=== PATIENT | female | born 1980 | race Hispanic/Latino ===

== ENCOUNTER 2018-04-07 20:28 | Emergency (ER) | payer MEDICAID ==
[2018-04-07 21:07] LABS: Absolute Lymphocytes (CBC) 4.6 K/uL (0.7-4.9); Absolute Monocytes 0.7 K/uL (0.1-1.3); Absolute Neutrophil 5.3 K/uL (1.8-8.0); Basophils % 0.6 % (0-1.3); Eosinophils % 0.9 % (0-4.4); Hematocrit 38.4 % (36.0-45.0); Lymphocytes % 42.7 % (15.3-44.8); MCH 31.7 pg (27.0-35.0); MCV 91.7 fL (80-100); MPV 8.4 fL (7.6-11.3); Monocytes % 6.8 % (3.3-12.3); RBC Red Blood Cell Count 4.18 M/uL (3.86-4.86)
[2018-04-07 21:20] LABS: Protime INR 1.07
[2018-04-07 21:58] LABS: ALT/SGPT 13 U/L (12-78); AST/SGOT 7 U/L (15-37); Albumin 3.7 g/dL (3.4-5.0); Alkaline Phosphatase 67 U/L (45-117); BUN Blood Urea Nitrogen 15 mg/dL (7-18); Bicarbonate 27 mmol/L (21-32); Bilirubin Direct < 0.1 mg/dL (0-0.2); Bilirubin Total 0.2 mg/dL (0.2-1.0); Glucose Level 84 mg/dL (74-106); Potassium 3.6 mmol/L (3.5-5.1); Protein, Total 7.4 g/dL (6.4-8.2); Sodium Level 141 mmol/L (136-145)
[2018-04-07 22:01] LABS: Alcohol Serum/Plasma 4 mg/dL (<3)
--- NOTE | 2018-04-07 22:29 | ER ---
Nurse's Notes [facility] Name: Lucy Saldana Age: 38 yrs Sex: Female : 1980 Arrival Date: 04/07/2018 Time: 20:31 Bed 14 Private MD: Diagnosis: Alcohol abuse;Other chronic pain Presentation: 04/07 20:37 Presenting complaint: Patient states: Patient brought in by [employer] slurring speech aj c/o ulcers, requesting MRI of pelvis. Patient reports that she also is hearing voices that are telling her to cut her wrists. Transition of care: patient was not received from another setting of care. Onset of symptoms was April 07, 2018. Risk Assessment: Do you want to hurt yourself or someone else? Patient reports no desire to harm self or others. Initial Sepsis Screen: Does the patient meet any 2 criteria? No. Patient's initial sepsis screen is negative. Does the patient have a suspected source of infection? No. Patient's initial sepsis screen is negative. Care prior to arrival: None. 20:37 Method Of Arrival: Law Enforcement: [place] 20:37 Acuity: ERASMO 2 aj Triage Assessment: 20:42 General: Appears in no apparent distress. comfortable, Behavior is drowsy. Pain: aj Complains of pain in pelvis. Neuro: Level of Consciousness is awake, alert, obeys commands, Oriented to person, place, time, situation, Appropriate for age. Respiratory: Airway is patent Respiratory effort is even, unlabored, Respiratory pattern is regular, symmetrical. Derm: Skin is intact, is healthy with good turgor, Skin is pink, warm \T\ dry. normal. Musculoskeletal: Reports pain in pelvis. 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 - Social history:: Smoking status: Patient uses tobacco products, smokes one-half pack cigarettes per day. - Ebola Screening: : Patient negative for fever greater than or equal to 101.5 degrees Fahrenheit, and additional compatible Ebola Virus Disease symptoms Patient denies exposure to infectious person Patient denies travel to an Ebola-affected area in the 21 days before illness onset No symptoms or risks identified at this time. Screenin:56 Abuse screen: Denies threats or abuse. Nutritional screening: No deficits noted. tl2 Tuberculosis screening: No symptoms or risk factors identified. Fall Risk IV access (20 points). Assessment: 20:45 General: Appears in no apparent distress. comfortable, Behavior is agitated, anxious, ao inappropriate for age. Pain: Unable to use pain scale. FLACC scale score is 0 out of 10. Neuro: Level of Consciousness is awake, alert, Oriented to person, place, time, situation, Appropriate for age Moves all extremities. Full function Speech is normal, Facial symmetry appears normal, Pupils are PERRLA. Cardiovascular: Heart tones S1 S2 Capillary refill < 3 seconds Patient's skin is warm and dry. Respiratory: Airway is patent Respiratory effort is even, unlabored, Respiratory pattern is regular, symmetrical. GI: Abdomen is non-distended. : No signs and/or symptoms were reported regarding the genitourinary system. EENT: No signs and/or symptoms were reported regarding the EENT system. Derm: Skin is intact, Skin is pink, warm \T\ dry. normal, Skin temperature is warm. Musculoskeletal: Circulation, motion, and sensation intact. Range of motion: intact in all extremities. 21:00 Reassessment: Dr Michelle at bedside going over the CHIEF OF PEDIATRIC UROLOGY. Patient is being treated as ao intoxications will stay to get sober then DC. Sitter not needed at this time as stated by Dr Coulter. 22:28 Reassessment: Patient refused to urinate. Urine sample was cancel. ao Vital Signs: 20:42 BP 108 / 81; Pulse 100; Resp 19; Temp 98.7; Pulse Ox 98% on R/A; Weight 68.04 kg; aj Height 5 ft. 1 in. (154.94 cm); 22:29 BP 101 / 70; Pulse 73; Resp 16; Pulse Ox 97% on R/A; Pain 0/10; ao 22:34 BP 112 / 81; Pulse 71; Resp 18; Pulse Ox 100% on R/A; tl2 20:42 Body Mass Index 28.34 (68.04 kg, 154.94 cm) ED Course: 20:31 Patient arrived in ED. es 20:40 Triage completed. aj 20:42 Raul Rivera PA is PHCP. tiffany 20:42 Arm band placed on left wrist. Patient placed in an exam room, Patient [place] police at bedside. 20:43 Jose C Coulter MD is Attending Physician. jrMaria Esther 20:44 Michel Stafford, RN is Primary Nurse. ao 20:55 Inserted saline lock: 22 gauge in right forearm, using aseptic technique. Blood tl2 collected. 20:56 Patient has correct armband on for positive identification. Placed in gown. Bed in low tl2 position. Call light in reach. Side rails up X2. Security at bedside. 22:32 No provider procedures requiring assistance completed. IV discontinued, intact, ao bleeding controlled, No redness/swelling at site. Pressure dressing applied. Administered Medications: No medications were administered Outcome: 22:28 Discharge ordered by . tiffany 22:33 Discharged to Law Enforcement ao 22:33 Condition: stable 22:33 Discharge instructions given to patient, Instructed on discharge instructions, follow up and referral plans. Demonstrated understanding of instructions, follow-up care, medications. 22:34 Patient left the ED. ao Signatures: Kerry Banuelos, RN Noy Isaac Josh, PA PA jrMichel Pedroza RN RN ao Knox, Taylor, RN RN tl2 Thompson, Moriah mt Corrections: (The following items were deleted from the chart) 21:01 20:45 Safety checks: Items removed: yes. Door open/sign placed on door: yes. mt Family/friend present: no. Other: Two [place] police officers standing bedside. Sitter present: Yes. Other: ELIZABETH Love sitting one on one. mt
--- NOTE | 2018-04-07 22:29 | EDPHYS ---
Physician Documentation [facility] Name: Lcuy Saldana Age: 38 yrs Sex: Female : 1980 Arrival Date: 04/07/2018 Time: 20:31 Bed 14 Private MD: ED Physician Jose C Coulter HPI: 04/07 21:43 This 38 yrs old Female presents to ER via Law Enforcement with complaints of jr8 slurred speech. 21:43 Patient brought in by police after picking her up on warrants. Stated that she was jr8 slurring her speech. Wants her medically cleared for alf. Patient complains of constant nausea and vomiting from ulcers. Patient alert to person, place, time, event but is slurring speech . Onset: The symptoms/episode began/occurred at an unknown time. Severity of symptoms: At their worst the symptoms were mild in the emergency department the symptoms are unchanged. It is unknown whether or not the patient has had similar symptoms in the past. The patient has not recently seen a physician. 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 - Social history:: Smoking status: Patient uses tobacco products, smokes one-half pack cigarettes per day. - Ebola Screening: : Patient negative for fever greater than or equal to 101.5 degrees Fahrenheit, and additional compatible Ebola Virus Disease symptoms Patient denies exposure to infectious person Patient denies travel to an Ebola-affected area in the 21 days before illness onset No symptoms or risks identified at this time. ROS: 21:43 Eyes: Negative for injury, pain, redness, and discharge, ENT: Negative for injury, jr8 pain, and discharge, Neck: Negative for injury, pain, and swelling, Cardiovascular: Negative for chest pain, palpitations, and edema, Respiratory: Negative for shortness of breath, cough, wheezing, and pleuritic chest pain, Back: Negative for injury and pain, MS/Extremity: Negative for injury and deformity, Skin: Negative for injury, rash, and discoloration, Neuro: Negative for headache, weakness, numbness, tingling, and seizure. 21:43 Abdomen/GI: Positive for nausea and vomiting, Negative for abdominal pain, diarrhea, constipation, abdominal cramps, abdominal distension, anorexia, dysphagia, hematemesis, black/tarry stool, rectal pain, rectal bleeding, bowel incontinence, flatulence. Exam: 21:43 Eyes: Pupils equal round and reactive to light, extra-ocular motions intact. Lids and jr8 lashes normal. Conjunctiva and sclera are non-icteric and not injected. Cornea within normal limits. Periorbital areas with no swelling, redness, or edema. ENT: Nares patent. No nasal discharge, no septal abnormalities noted. Tympanic membranes are normal and external auditory canals are clear. Oropharynx with no redness, swelling, or masses, exudates, or evidence of obstruction, uvula midline. Mucous membranes moist. Neck: Trachea midline, no thyromegaly or masses palpated, and no cervical lymphadenopathy. Supple, full range of motion without nuchal rigidity, or vertebral point tenderness. No Meningismus. Cardiovascular: Regular rate and rhythm with a normal S1 and S2. No gallops, murmurs, or rubs. Normal PMI, no JVD. No pulse deficits. Respiratory: Lungs have equal breath sounds bilaterally, clear to auscultation and percussion. No rales, rhonchi or wheezes noted. No increased work of breathing, no retractions or nasal flaring. Abdomen/GI: Soft, non-tender, with normal bowel sounds. No distension or tympany. No guarding or rebound. No evidence of tenderness throughout. Back: No spinal tenderness. No costovertebral tenderness. Full range of motion. Skin: Warm, dry with normal turgor. Normal color with no rashes, no lesions, and no evidence of cellulitis. MS/ Extremity: Pulses equal, no cyanosis. Neurovascular intact. Full, normal range of motion. Neuro: Awake and alert, GCS 15, oriented to person, place, time, and situation. Cranial nerves II-XII grossly intact. Motor strength 5/5 in all extremities. Sensory grossly intact. Cerebellar exam normal. Normal gait. Vital Signs: 20:42 BP 108 / 81; Pulse 100; Resp 19; Temp 98.7; Pulse Ox 98% on R/A; Weight 68.04 kg; aj Height 5 ft. 1 in. (154.94 cm); 22:29 BP 101 / 70; Pulse 73; Resp 16; Pulse Ox 97% on R/A; Pain 0/10; ao 22:34 BP 112 / 81; Pulse 71; Resp 18; Pulse Ox 100% on R/A; tl2 20:42 Body Mass Index 28.34 (68.04 kg, 154.94 cm) aj MDM: 20:43 Patient medically screened. 8 22:27 Data reviewed: vital signs, nurses notes, lab test result(s), EKG, and as a result, I jr8 will discharge patient. Data interpreted: Pulse oximetry: on room air is 98 %. Interpretation: normal. Counseling: I had a detailed discussion with the patient and/or guardian regarding: the historical points, exam findings, and any diagnostic results supporting the discharge/admit diagnosis, lab results, the need for outpatient follow up, a family practitioner, to return to the emergency department if symptoms worsen or persist or if there are any questions or concerns that arise at home. ED course: No acute medical condition found. Labs without acute finding. Medically cleared for alf . 04/07 20:43 Order name: Acetaminophen; Complete Time: 22:04/07 20:43 Order name: Basic Metabolic Panel; Complete Time: 22:04/07 20:43 Order name: CBC with Diff; Complete Time: 21:42 04/07 20:43 Order name: ETOH Level; Complete Time: 22:04/07 20:43 Order name: Hepatic Function; Complete Time: 22:05 04/07 20:43 Order name: PT-INR; Complete Time: 21:42 04/07 20:43 Order name: Salicylate; Complete Time: 22:27 04/07 20:43 Order name: EKG; Complete Time: 20:44 04/07 20:43 Order name: EKG - Nurse/Tech; Complete Time: 20:53 04/07 20:43 Order name: IV Saline Lock; Complete Time: 20:53 04/07 20:43 Order name: Labs collected and sent; Complete Time: 20:53 jr8 Administered Medications: No medications were administered Disposition: 04/07/18 22:28 Discharged to Home. Impression: Alcohol abuse, Other chronic pain. - Condition is Stable. - Discharge Instructions: Alcohol Intoxication, Chronic Pain. - Medication Reconciliation Form, Thank You Letter, Antibiotic Education, Prescription Opioid Use form. - Follow up: Private Physician; When: As needed; Reason: Recheck today's complaints, Continuance of care, Re-evaluation by your physician. - Problem is new. - Symptoms are unchanged. Addendum: 04/09/2018 04:20 Co-signature as Attending Physician, Jose C Coulter MD I agree with the assessment and p s1 plan of care. Signatures: Dispatcher [employer] EDKerry Saleh RN Raul Adams PA PA jr8 Michel Stafford RN RN ao Singer, Phillip, MD MD ps1 Corrections: (The following items were deleted from the chart) 04/07 22:28 22:28 04/07/2018 22:28 Discharged to Home. Impression: Alcohol abuse. Condition is jr8 Stable. Forms are Medication Reconciliation Form, Thank You Letter, Antibiotic Education, Prescription Opioid Use. Follow up: Private Physician; When: As needed; Reason: Recheck today's complaints, Continuance of care, Re-evaluation by your physician. Problem is new. Symptoms are unchanged. jr8 22:33 20:43 Urine Test ordered. jr8 ao 22:34 20:43 Urine Dipstick-Ancillary ordered. jr8 ao 22:34 22:28 04/07/2018 22:28 Discharged to Home. Impression: Alcohol abuse; Other chronic ao pain. Condition is Stable. Forms are Medication Reconciliation Form, Thank You Letter, Antibiotic Education, Prescription Opioid Use. Follow up: Private Physician; When: As needed; Reason: Recheck today's complaints, Continuance of care, Re-evaluation by your physician. Problem is new. Symptoms are unchanged. jr8
--- NOTE | 2018-04-08 14:37 | EKG ---
Test Date: 2018-04-07 Test Time: 20:48:52 [employer]er: LAUREL MEASUREMENT RESULTS: Intervals: Rate: 87 VA: 162 QRSD: 70 QT: 370 QTc: 445 [place]: P: 41 VA: 162 QRS: 71 T: 59 INTERPRETIVE STATEMENTS: Normal sinus rhythm Normal ECG Compared to ECG 06/02/2013 09:05:32 No significant changes Electronically Signed On 04-08-18 14:35:46 CDT by Liam Guaman
== END 2018-04-07 22:34 | disposition home or self-care (01) ==
LOC: ER 20:28
DX: F10.10 Alcohol abuse, uncomplicated (principal); F20.9 Schizophrenia, unspecified; G89.29 Other chronic pain; F17.210 Nicotine dependence, cigarettes, uncomplicated
CPT/HCPCS: 36415; 80048; 80076; 80320; 80329; 85025; 85610; 93005; 99284

== ENCOUNTER 2018-05-12 17:13 | Emergency (ER) | payer MEDICAID ==
[2018-05-12] MEDS ORDERED: NA CHLORIDE 0.9% 1,000 ML ONE (17:30)
[2018-05-12 17:43] LABS: Absolute Lymphocytes (CBC) 2.9 K/uL (0.7-4.9); Absolute Monocytes 0.7 K/uL (0.1-1.3); Absolute Neutrophil 7.8 K/uL (1.8-8.0); Basophils % 0.3 % (0-1.3); Eosinophils % 0.9 % (0-4.4); Hematocrit 37.2 % (36.0-45.0); Lymphocytes % 25.2 % (15.3-44.8); MCV 90.7 fL (80-100); MPV 8.7 fL (7.6-11.3); Monocytes % 5.7 % (3.3-12.3)
--- NOTE | 2018-05-12 17:44 | RAD REPORT ---
EXAM DESCRIPTION: CT - Head Brain Wo Cont - 05/12/2018 5:34 pm CLINICAL HISTORY: Seizure, transient alteration of awareness COMPARISON: CT head May 2013 TECHNIQUE: Axial 5 mm thick images of the head were obtained without IV contrast. All CT scans are performed using dose optimization technique as appropriate and may include automated exposure control or mA/KV adjustment according to patient size. FINDINGS: No intracranial hemorrhage, mass, edema or shift of mid-line structures. No acute infarcti on changes seen. No abnormal extra-axial fluid collections. Ventricles are normal. Prominent fatty ti ssue over the left frontal scalp noted as an incidental finding. Mastoid air cells and visualized portions of the paranasal sinuses are clear. No acute bony findings. No significant change from comparison. IMPRESSION: Negative non-contrast CT head examination for acute or significant finding.
[2018-05-12 17:47] LABS: Protime INR 1.01
[2018-05-12 17:52] LABS: Barbiturates NEGATIVE (NEGATIVE); Benzodiazepines POSITIVE (NEGATIVE); Cocaine POSITIVE (NEGATIVE); METHAMPHETAM NEGATIVE (NEGATIVE); Methadone NEGATIVE (NEGATIVE); Opiates POSITIVE (NEGATIVE); Phencyclidine NEGATIVE (NEGATIVE); THC Cannibis POSITIVE (NEGATIVE)
[2018-05-12 18:05] LABS: ALT/SGPT 28 U/L (12-78); AST/SGOT 30 U/L (15-37); Albumin 3.4 g/dL (3.4-5.0); Alkaline Phosphatase 60 U/L (45-117); BUN Blood Urea Nitrogen 9 mg/dL (7-18); Bicarbonate 25 mmol/L (21-32); Bilirubin Direct < 0.1 mg/dL (0-0.2); Bilirubin Total 0.3 mg/dL (0.2-1.0); Glucose Level 99 mg/dL (74-106); Potassium 3.8 mmol/L (3.5-5.1); Sodium Level 143 mmol/L (136-145)
[2018-05-12 18:12] LABS: Valproic Acid (Depakene) Level < 3.0 ug/mL (50-100)
[2018-05-12 18:23] LABS: Urine Blood 2+ (NEG); Urine Glucose NEGATIVE (NEG); Urine Protein NEGATIVE (NEG); Urine Specific Gravity 1.025 (1.005-1.030); Urine pH 5.5 (5.0-7.0)
--- NOTE | 2018-05-12 19:30 | ER ---
Nurse's Notes [facility] Name: Lucy Saldana Age: 38 yrs Sex: Female : 1980 Arrival Date: 05/12/2018 Time: 17:16 Bed 2 Private MD: Diagnosis: Drug abuse counseling and surveillance;Drug Abuse Presentation: 05/12 17:16 Presenting complaint: Was seen walking near road, stumbling around, picked up by ph someone passing by who attempted to take her home but pt could not give address, pt reports hx of seizures, hematoma noted to head, pt also noted to be drowsy w/ slurred speech, denies drug or alcohol use. Transition of care: patient was not received from another setting of care. Onset of symptoms was May 12, 2018. Risk Assessment: Do you want to hurt yourself or someone else? Patient reports no desire to harm self or others. Initial Sepsis Screen: Does the patient meet any 2 criteria? No. Patient's initial sepsis screen is negative. Care prior to arrival: None. 17:16 Method Of Arrival: Wheelchair ph 17:16 Acuity: ERASMO 2 17:36 Initial Sepsis Screen: Does the patient have a suspected source of infection? No. sv Patient's initial sepsis screen is negative. Triage Assessment: 17:15 General: Appears uncomfortable, unkempt, Behavior is cooperative, drowsy. Pain: Denies sv pain. EENT: No signs and/or symptoms were reported regarding the EENT system. Neuro: Level of Consciousness is lethargic, Oriented to person, situation, Moves all extremities. Speech is slurred, Reports she had a seizure.. Cardiovascular: Patient's skin is warm and dry. Rhythm is sinus rhythm. Respiratory: Airway is patent Respiratory effort is even, unlabored, Respiratory pattern is regular, symmetrical. GI: No signs and/or symptoms were reported involving the gastrointestinal system. : No signs and/or symptoms were reported regarding the genitourinary system. Derm: Skin is normal. Musculoskeletal: No signs and/or symptoms reported regarding the musculoskeletal system. 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 - Social history:: Smoking status: unknown. - Ebola Screening: : No symptoms or risks identified at this time. Screenin:28 Abuse screen: Denies threats or abuse. Denies injuries from another. Nutritional sv screening: No deficits noted. Tuberculosis screening: No symptoms or risk factors identified. Fall Risk No fall in past 12 months (0 pts). Secondary diagnosis (15 points) seizures, IV access (20 points). Ambulatory Aid- None/Bed Rest/Nurse Assist (0 pts). Gait- Normal/Bed Rest/Wheelchair (0 pts) Mental Status- Overestimates/Forgets Limitations (15 pts.). Total Graves Fall Scale indicates High Risk Score (45 or more points). Fall prevention measures have been instituted. Side Rails Up X 2 Placed Close to Nursing Station Frequent Obs/Assessments Occuring As available patient and family educated on Fall Prevention Program and Strategies. Assessment: 17:36 Reassessment: Patient appears in no apparent distress at this time. No changes from sv previously documented assessment. Patient and/or family updated on plan of care and expected duration. Pain level reassessed. 18:26 Reassessment: Patient appears in no apparent distress at this time. No changes from ss previously documented assessment. Patient and/or family updated on plan of care and expected duration. Pain level reassessed. 19:00 Reassessment: RECD REPORT FROM SAADIA HAMPTON. 38YO HF P/W INGESTION AND AMS. AWAITING bp TRANSPORT OR SOBRIETY FOR DISPOSITION. 19:32 Reassessment: FAMILY AT B/S, PT D/C AMBULATORY WITH FAMILY, DX WITH DRUG ABUSE. bp Vital Signs: 17:17 BP 102 / 76; Pulse 89; Resp 14; Pulse Ox 93% on R/A; ss 17:28 Temp 98.8; ss 17:39 BP 96 / 67; Pulse 80; Resp 12; Pulse Ox 98% on 2 lpm NC; sv 18:26 BP 101 / 69; Pulse 66; Resp 15; Pulse Ox 100% on R/A; ss 19:00 BP 101 / 70; Pulse 82; Resp 16; Pulse Ox 100% ; bp ED Course: 17:15 Initial lab(s) drawn, by ED staff, sent to lab. Inserted saline lock: 20 gauge in right sv antecubital area, using aseptic technique. ,using aseptic technique. done by Sarah HAMPTON Blood collected. 17:16 Patient arrived in ED. ss 17:18 Raul Rivera PA is PHCP. jr8 17:18 Parveen Stanley MD is Attending Physician. jr8 17:20 Triage completed. ph 17:20 Saadia Croft, RN is Primary Nurse. sv 17:20 Arm band placed on. ph 17:20 Patient has correct armband on for positive identification. Placed in gown. Bed in low sv position. Call light in reach. Side rails up X2. detective chief on. Pulse ox on. NIBP on. Door closed. Head of bed elevated. 17:22 Straight cath inserted, using sterile technique, 16 Fr. Specimen obtained. Patient sv tolerated well. 17:[address] via stretcher. sv 17:34 CT Head Brain wo Cont In Process Unspecified. EDMS 17:34 EKG done, by filling technician. reviewed by Raul GARCIA. sm3 17:36 Patient moved back from CT. sv 17:37 CT completed. Patient tolerated procedure well. nj 19:02 Primary Nurse role handed off by Saadia Croft, BERTA sv 19:05 Parish Escalera, BERTA is Primary Nurse. bp 19:32 No provider procedures requiring assistance completed. IV discontinued, intact, bp bleeding controlled, No redness/swelling at site. Pressure dressing applied. Administered Medications: 17:27 Drug: NS 0.9% 1000 ml Route: IV; Rate: 1000 ml; Site: right antecubital; ss 18:30 Follow up: Response: No adverse reaction; IV Status: Completed infusion; IV Intake: sv 1000ml Point of Care Testing: Blood Glucose: 17:17 Blood Glucose: 82 mg/dL; ss Ranges: Intake: 18:30 IV: 1000ml; Total: 1000ml. sv Outcome: 19:29 Discharge ordered by . jr8 19:33 Discharged to home ambulatory, with family. bp 19:33 Condition: stable 19:33 Discharge instructions given to patient, Instructed on discharge instructions, Demonstrated understanding of instructions, follow-up care. 19:34 Patient left the ED. bp Signatures: Dispatcher [employer] EDSaadia Iqbal RN Gina Fraser RN RN ss Roszak, Josh, PA PA jr Sakina Fragoso RN RN [facility], Parish Escamilla RN RN Chanelle Rawls [facility]
--- NOTE | 2018-05-12 19:30 | EDPHYS ---
Physician Documentation [facility] Name: Lucy Saldana Age: 38 yrs Sex: Female : 1980 Arrival Date: 05/12/2018 Time: 17:16 Bed 2 Private MD: ED Physician Parveen Stanley HPI: 05/12 18:56 This 38 yrs old Female presents to ER via Wheelchair with complaints of jr8 Altered Mental Status. 18:56 The patient presents with confusion, decreased mental status. Onset: The jr8 symptoms/episode began/occurred at an unknown time. Possible causes: drug use, seizure, the patient has a known seizure history. Associated signs and symptoms: The patient has no apparent associated signs or symptoms. Current symptoms: In the emergency department the patient's symptoms have improved. Patient's baseline: Neuro: alert and fully oriented, Motor: no deficits, Ambulation: walks without assistance, Speech: normal. It is unknown whether or not the patient has had similar symptoms in the past. It is unknown whether or not the patient has recently seen a physician. Patient brought in POV by bystander who found her staggering down the road. Stated that she did not know where she was going. Patient alert to person and place. Could tell us her home address but not what she was doing . INTERIOR MECHANIC: 19:33 LMP N/A - Irregular menses bp Historical: - Allergies: 17:20 No Known Allergies; ph - Home Meds: 17:20 Celexa Oral [Active]; Depakote Oral [Active]; hydrocodone-acetaminophen 10-325 mg Oral ph tab 1 tab every 6 hours [Active]; Risperdal Oral [Active]; Soma 350 mg Oral tab 1 tab 3 times per day [Active]; - PMHx: 17:20 Chronic pain; Schizophrenia; ph - PSHx: 17:20 None; ph - Immunization history:: Adult Immunizations unknown. - Social history:: Smoking status: unknown. - Ebola Screening: : No symptoms or risks identified at this time. ROS: 18:56 Eyes: Negative for injury, pain, redness, and discharge, ENT: Negative for injury, jr8 pain, and discharge, Neck: Negative for injury, pain, and swelling, Cardiovascular: Negative for chest pain, palpitations, and edema, Respiratory: Negative for shortness of breath, cough, wheezing, and pleuritic chest pain, Abdomen/GI: Negative for abdominal pain, nausea, vomiting, diarrhea, and constipation, Back: Negative for injury and pain, MS/Extremity: Negative for injury and deformity, Skin: Negative for injury, rash, and discoloration. 18:56 Neuro: Positive for altered mental status, Negative for dizziness, gait disturbance, headache, hearing loss, loss of consciousness, numbness, seizure activity, speech changes, syncope, near syncope, tingling, tinnitus, tremor, visual changes, weakness. Exam: 18:56 Eyes: Pupils equal round and reactive to light, extra-ocular motions intact. Lids and jr8 lashes normal. Conjunctiva and sclera are non-icteric and not injected. Cornea within normal limits. Periorbital areas with no swelling, redness, or edema. ENT: Nares patent. No nasal discharge, no septal abnormalities noted. Tympanic membranes are normal and external auditory canals are clear. Oropharynx with no redness, swelling, or masses, exudates, or evidence of obstruction, uvula midline. Mucous membranes moist. Neck: Trachea midline, no thyromegaly or masses palpated, and no cervical lymphadenopathy. Supple, full range of motion without nuchal rigidity, or vertebral point tenderness. No Meningismus. Cardiovascular: Regular rate and rhythm with a normal S1 and S2. No gallops, murmurs, or rubs. Normal PMI, no JVD. No pulse deficits. Respiratory: Lungs have equal breath sounds bilaterally, clear to auscultation and percussion. No rales, rhonchi or wheezes noted. No increased work of breathing, no retractions or nasal flaring. Abdomen/GI: Soft, non-tender, with normal bowel sounds. No distension or tympany. No guarding or rebound. No evidence of tenderness throughout. Back: No spinal tenderness. No costovertebral tenderness. Full range of motion. Skin: Warm, dry with normal turgor. Normal color with no rashes, no lesions, and no evidence of cellulitis. MS/ Extremity: Pulses equal, no cyanosis. Neurovascular intact. Full, normal range of motion. 18:56 Neuro: Orientation: to person, place, Mentation: slow to respond, Memory: immediate memory is intact, remote memory is intact. recent memory is impaired, Cranial nerves: CN I not tested, CN II- XII are normal as tested, extraocular movements are intact, Facial palsy and sensory deficits are absent. Speech is slowed, slurred, Tongue strength is normal, Motor: moves all fours, Sensation: no obvious gross deficits, seizure activity, is not displayed by the patient, Abnormal movements: there are no abnormal movements. Vital Signs: 17:17 BP 102 / 76; Pulse 89; Resp 14; Pulse Ox 93% on R/A; ss 17:28 Temp 98.8; ss 17:39 BP 96 / 67; Pulse 80; Resp 12; Pulse Ox 98% on 2 lpm NC; sv 18:26 BP 101 / 69; Pulse 66; Resp 15; Pulse Ox 100% on R/A; ss 19:00 BP 101 / 70; Pulse 82; Resp 16; Pulse Ox 100% ; bp MDM: 17:18 Patient medically screened. jr8 19:26 Data reviewed: vital signs, nurses notes, lab test result(s), EKG. Data interpreted: jr8 Pulse oximetry: on room air is 100 %. Interpretation: normal. Counseling: I had a detailed discussion with the patient and/or guardian regarding: the historical points, exam findings, and any diagnostic results supporting the discharge/admit diagnosis, lab results, the need for outpatient follow up, a family practitioner, to return to the emergency department if symptoms worsen or persist or if there are any questions or concerns that arise at home. ED course: Patient has improved. Wants to go home. Patient found a ride from relative to pick her up and is present in exam room. Discussed with her that she needs to not do illegal drugs anymore. If worse to come back . 05/12 17:20 Order name: Acetaminophen; Complete Time: 18:37 05/12 17:20 Order name: Basic Metabolic Panel; Complete Time: 18:37 05/12 17:20 Order name: CBC with Diff; Complete Time: 18:00 05/12 17:20 Order name: ETOH Level; Complete Time: 18:37 05/12 17:20 Order name: Hepatic Function; Complete Time: 18:37 05/12 17:20 Order name: PT-INR; Complete Time: 18:37 05/12 17:20 Order name: Ptt, Activated; Complete Time: 18:37 05/12 17:20 Order name: Salicylate; Complete Time: 18:37 05/12 17:20 Order name: Urine Drug Screen; Complete Time: 18:37 05/12 17:20 Order name: CT Head Brain wo Cont; Complete Time: 18:00 05/12 17:20 Order name: Depakote; Complete Time: 18:37 05/12 17:34 Order name: Urine Dipstick--Ancillary (enter results); Complete Time: 18:37 05/12 17:34 Order name: Urine --Ancillary (enter results); Complete Time: 18:37 eb 05/12 19:01 Order name: Glucose, Ancillary Testing; Complete Time: 19:11 EDMO 05/12 17:20 Order name: Urine Test (obtain specimen); Complete Time: 17:27 05/12 17:20 Order name: EKG; Complete Time: 17:21 05/12 17:20 Order name: EKG - Nurse/Tech; Complete Time: 17:27 05/12 17:20 Order name: IV Saline Lock; Complete Time: 17:27 05/12 17:20 Order name: Labs collected and sent; Complete Time: 17:27 05/12 17:20 Order name: Urine Dipstick-Ancillary (obtain specimen); Complete Time: 17:27 Administered Medications: 17:27 Drug: NS 0.9% 1000 ml Route: IV; Rate: 1000 ml; Site: right antecubital; ss 18:30 Follow up: Response: No adverse reaction; IV Status: Completed infusion; IV Intake: sv 1000ml Point of Care Testing: Blood Glucose: 17:17 Blood Glucose: 82 mg/dL; ss Ranges: Critical Glucose Levels:Adult <50 mg/dl or >400 mg/dl <40 mg/dl or >180 mg/dl Disposition: 05/13 07:34 Co-signature as Attending Physician, Parveen Stanley MD I agree with the assessment and chris plan of care. Disposition: 05/12/18 19:29 Discharged to Home. Impression: Drug abuse counseling and surveillance, Drug Abuse. - Condition is Stable. - Discharge Instructions: Finding Treatment for Addiction. - Medication Reconciliation Form, Thank You Letter, Antibiotic Education, Prescription Opioid Use form. - Follow up: Private Physician; When: 2 - 3 days; Reason: Recheck today's complaints, Continuance of care, Re-evaluation by your physician. - Problem is new. - Symptoms have improved. Signatures: Dispatcher [employer] Saadia Rodriges, RN RN Parveen Chew MD MD cha Smirch, Shelby, RN RN ss Roszak, Josh, PA PA jr8 Sakina Fragoso RN RN Parish Escalera RN RN bp Corrections: (The following items were deleted from the chart) 05/12 19:34 19:29 05/12/2018 19:29 Discharged to Home. Impression: Drug abuse counseling and bp surveillance; Drug Abuse. Condition is Stable. Forms are Medication Reconciliation Form, Thank You Letter, Antibiotic Education, Prescription Opioid Use. Follow up: Private Physician; When: 2 - 3 days; Reason: Recheck today's complaints, Continuance of care, Re-evaluation by your physician. Problem is new. Symptoms have improved. jr8
--- NOTE | 2018-05-13 04:17 | EKG ---
Test Date: 2018-05-12 Test Time: 17:27:47 [employer] Tool Setter: ANNIE MEASUREMENT RESULTS: Intervals: Rate: 87 TN: 154 QRSD: 74 QT: 360 QTc: 433 [place]: P: 29 TN: 154 QRS: 39 T: 32 INTERPRETIVE STATEMENTS: Normal sinus rhythm Possible Left atrial enlargement Borderline ECG Compared to ECG 04/07/2018 20:48:52 No significant changes Electronically Signed On 05-13-18 04:16:33 CDT by Juan Antonio Abdalla
== END 2018-05-12 19:34 | disposition home or self-care (01) ==
LOC: ER 17:13
DX: F19.10 Other psychoactive substance abuse, uncomplicated (principal); F20.9 Schizophrenia, unspecified; Z71.51 Drug abuse counseling and surveillance of drug abuser
CPT/HCPCS: 36415; 51702; 70450; 80048; 80076; 80164; 80307; 80320; 80329; 81003; 81025; 82962; 85025; 85610; 85730; 93005; 96360; 99285; J7030

== ENCOUNTER 2019-01-01 21:20 | Emergency (ER) | payer MEDICAID ==
[2019-01-01 21:47] LABS: Absolute Lymphocytes (CBC) 5.4 K/uL (0.7-4.9); Absolute Monocytes 0.6 K/uL (0.1-1.3); Absolute Neutrophil 3.4 K/uL (1.8-8.0); Basophils % 0.4 % (0-1.3); Eosinophils % 1.5 % (0-4.4); Hematocrit 38.4 % (36.0-45.0); Lymphocytes % 56.7 % (15.3-44.8); MPV 8.4 fL (7.6-11.3); RBC Red Blood Cell Count 4.23 M/uL (3.86-4.86)
[2019-01-01] MEDS ORDERED: NA CHLORIDE 0.9% 1,000 ML ONE (22:01)
[2019-01-01 22:06] LABS: ALT/SGPT 15 U/L (12-78); AST/SGOT 7 U/L (15-37); Albumin 3.6 g/dL (3.4-5.0); Alkaline Phosphatase 69 U/L (45-117); BUN Blood Urea Nitrogen 13 mg/dL (7-18); Bicarbonate 28 mmol/L (21-32); Bilirubin Direct < 0.1 mg/dL (0-0.2); Glucose Level 83 mg/dL (74-106); Potassium 3.7 mmol/L (3.5-5.1); Protein, Total 7.3 g/dL (6.4-8.2); Sodium Level 147 mmol/L (136-145)
[2019-01-01 22:15] LABS: Protime INR 0.93
[2019-01-01 22:38] LABS: Bilirubin Total < 0.1 mg/dL (0.2-1.0)
[2019-01-01 23:20] LABS: Creatine Phosphokinase 113 U/L (26-192); Troponin I < 0.02 ng/mL (0.0-0.045)
[2019-01-01 23:47] LABS: Barbiturates NEGATIVE (NEGATIVE); Benzodiazepines NEGATIVE (NEGATIVE); Cocaine NEGATIVE (NEGATIVE); METHAMPHETAM NEGATIVE (NEGATIVE); Methadone NEGATIVE (NEGATIVE); Opiates POSITIVE (NEGATIVE); Phencyclidine NEGATIVE (NEGATIVE); THC Cannibis POSITIVE (NEGATIVE)
--- NOTE | 2019-01-02 00:08 | ER ---
Nurse's Notes [facility] Name: Lucy Saldana Age: 38 yrs Sex: Female : 1980 Arrival Date: 01/01/2019 Time: 21:22 Bed 3 Private MD: Diagnosis: Drug abuse counseling and surveillance of drug abuser Presentation: 01/01 21:23 Presenting complaint: Patient states: Patient was found unresponsive on a side walk. ao Pupils were pinpoint and not responding. Ammonia inhaler was given with no response. Patient was given Narcan 2 mg IM on scene with a response. Patient reported taking two hydrocodone and was found with pill identified as Hydrocodone. Transition of care: patient was not received from another setting of care. Onset of symptoms is unknown. Risk Assessment: Do you want to hurt yourself or someone else? Patient reports no desire to harm self or others. Initial Sepsis Screen: Does the patient meet any 2 criteria? No. Patient's initial sepsis screen is negative. Does the patient have a suspected source of infection? No. Patient's initial sepsis screen is negative. Care prior to arrival: Medication(s) given: Narcan 2 mg IM. 21:23 Method Of Arrival: EMS: [facility] ao 21:23 Acuity: ERASMO 2 ao CLINICAL INFORMATICS PHYSICIAN: 23:46 pt currently on cycle ak1 Historical: - Allergies: 21:33 No Known Allergies; ao - Home Meds: 21:33 Celexa Oral [Active]; Depakote Oral [Active]; hydrocodone-acetaminophen 10-325 mg Oral ao tab 1 tab every 6 hours [Active]; Soma 350 mg Oral tab 1 tab 3 times per day [Active]; Risperdal Oral [Active]; - PMHx: 21:33 Chronic pain; Schizophrenia; Bipolar disorder; Hypertension; ao - PSHx: 21:33 Unable to obtain; ao - Immunization history:: Adult Immunizations unknown. - Social history:: Smoking status: unknown. - Ebola Screening: : Patient denies travel to an Ebola-affected area in the 21 days before illness onset. Screenin:40 Abuse screen: Denies threats or abuse. Denies injuries from another. Nutritional ao screening: No deficits noted. Tuberculosis screening: No symptoms or risk factors identified. Fall Risk Fall in past 12 months (25 points). Secondary diagnosis (15 points) IV access (20 points). Assessment: 21:30 General: Appears in no apparent distress. uncomfortable, unkempt, Behavior is drowsy, ao flat, inappropriate for age, listless, uncooperative. Pain: Denies pain. Neuro: Level of Consciousness is awake, confused, Oriented to person, place, Moves all extremities. Speech is normal. Cardiovascular: Capillary refill < 3 seconds Patient's skin is warm and dry. Respiratory: Airway is patent Trachea midline Respiratory effort is even, unlabored, Respiratory pattern is regular, symmetrical. GI: Abdomen is flat, non-distended. : No signs and/or symptoms were reported regarding the genitourinary system. EENT: No signs and/or symptoms were reported regarding the EENT system. Derm: Skin is intact, Skin is pink, warm \\T\\ dry. black, Skin temperature is warm. Musculoskeletal: Circulation, motion, and sensation intact. Range of motion:. 21:57 Reassessment: EMS handed over to this nurse pill allegedly reported patient had. Pills ao had not been in a pill bottle and pt had no prescription with her. Pills had been identified as 7-Baylis 10/325 Mg and 6-Soma 350 mg with BERTA Jensen. 22:09 Reassessment: Hand over pills to BERTA Navarro. ao 23:36 Reassessment: pt unsteady on her feet while trying to use bedside commode. pt crying ak1 but will not say why she is upset. Mabel GARCIA at bedside. pt stating she wants to go home, pt denies having friends or family to come get her or to stay with. 23:46 Reassessment: pt denies any self harm. pt denies suicidal attempt. pt stated she only ak1 "took my meds". 01/02 00:03 Reassessment: pt unable to find a ride home. attempt to contact mother via numbers on ak1 the pt's emergency contact sheet on file with no success. pt stumbling around ER, left out the front doors. [place] [employer] contacted and on scene. pt eloped. 03:09 Reassessment: Watch BERTA Navarro disposal in biohazard bin patient pills prior ao identified as Baylis and Soma. 03:12 Reassessment: Per hour supervisor intermediates pill need to be dispose. ao Vital Signs: 01/01 21:29 BP 112 / 83; Pulse 99; Resp 15; Temp 98.5(O); Pulse Ox 100% on R/A; Weight 77.11 kg; ao Height 5 ft. 3 in. (160.02 cm); Pain 5/10; 21:29 Body Mass Index 30.11 (77.11 kg, 160.02 cm) ao ED Course: 21:22 Patient arrived in ED. ao 21:28 Triage completed. ao 21:35 Arm band placed on right wrist. Patient placed in an exam room, on a stretcher, on ao environmental monitoring technician, on pulse oximetry, Patient notified of wait time. 21:36 Parveen Kirk PA is PHCP. cp 21:36 Parveen Stanley MD is Attending Physician. cp 21:36 Inserted saline lock: 20 gauge in right forearm, using aseptic technique. ,using ao aseptic technique. BERTA Jensen Blood collected. 21:40 Patient has correct armband on for positive identification. environmental monitoring technician on. Pulse ao ox on. NIBP on. 21:41 Michel Stafford, BERTA is Primary Nurse. ao 23:31 CT Head C Spine In Process Unspecified. EDMS 23:46 No provider procedures requiring assistance completed. ak1 01/02 00:05 IV discontinued, intact, bleeding controlled, No redness/swelling at site. Pressure ao dressing applied. Administered Medications: 01/01 21:52 Drug: NS 0.9% 1000 ml Route: IV; Rate: 1 bolus; Site: right antecubital; ao 23:03 Follow up: IV Status: Completed infusion; IV Intake: 1000ml ak1 Point of Care Testing: Blood Glucose: :29 Blood Glucose: 100 mg/dL; ao Ranges: Intake: 23:03 IV: 1000ml; Total: 1000ml. ak1 Outcome: 01/02 00:05 Eloped from patient exam room, after seeing physician See nursing notes ao Condition: stable Instructed on To call for a ride. Pt elope 00:07 Discharge ordered by . cp 00:08 Patient left the ED. ao Signatures: Dispatcher [employer] EDMS Camila Jauregui RN RN ak1 Parveen Kirk PA PA cp Ortiz, Alex RN RN ao Corrections: (The following items were deleted from the chart) 01/01 21:36 21:23 Care prior to arrival: None. ao ao
--- NOTE | 2019-01-02 00:09 | EDPHYS ---
Physician Documentation [facility] Name: Lucy Saldana Age: 38 yrs Sex: Female : 1980 Arrival Date: 01/01/2019 Time: 21:22 Bed 3 Private MD: ED Physician Parveen Stanley HPI: 01/01 21:35 This 38 yrs old Female presents to ER via EMS with complaints of Unresponsive. cp 21:35 The patient's problem is reported as found on ground outside. Onset: The cp symptoms/episode began/occurred just prior to arrival. Duration: unknown. Patient found on ground outside with what appears to be narcotic pain meds in pocket. Patient reportedly admitted to EMS to taking hydrocodone today. Patient given Narcan by EMS and reportedly now more alert. RIGHT OF WAY MAN: 23:46 pt currently on cycle ak1 Historical: - Allergies: 21:33 No Known Allergies; ao - Home Meds: 21:33 Celexa Oral [Active]; Depakote Oral [Active]; hydrocodone-acetaminophen 10-325 mg Oral ao tab 1 tab every 6 hours [Active]; Soma 350 mg Oral tab 1 tab 3 times per day [Active]; Risperdal Oral [Active]; - PMHx: 21:33 Chronic pain; Schizophrenia; Bipolar disorder; Hypertension; ao - PSHx: 21:33 Unable to obtain; ao - Immunization history:: Adult Immunizations unknown. - Social history:: Smoking status: unknown. - Ebola Screening: : Patient denies travel to an Ebola-affected area in the 21 days before illness onset. ROS: 21:40 Constitutional: Negative for fever. cp 21:40 Unable to obtain ROS due to altered mental status. cp Exam: 21:30 ECG was reviewed by the Attending Physician. cp 21:45 Head/Face: Normocephalic, atraumatic. cp 21:45 Constitutional: The patient appears in no acute distress, non-diaphoretic, non-toxic, well developed, well nourished. 21:45 Eyes: Periorbital structures: appear normal, Pupils: pinpoint, bilaterally, Lids and cp lashes: appear normal, bilaterally. 21:45 ENT: External ear(s): are unremarkable, Ear canal(s): are normal, clear, TM's: dullness, bilaterally, Nose: is normal, Mouth: Lips: moist, Oral mucosa: moist, Posterior pharynx: Airway: no evidence of obstruction, patent. 21:45 Neck: C-spine: vertebral tenderness, is not appreciated, crepitus, is not appreciated. 21:45 Chest/axilla: Inspection: normal, Palpation: is normal, no crepitus, no tenderness. 21:45 Cardiovascular: Rate: normal, Rhythm: regular, Heart sounds: murmur, not appreciated, JVD: is not appreciated. 21:45 Respiratory: the patient does not display signs of respiratory distress, Respirations: normal, no use of accessory muscles, no retractions, no splinting, no tachypnea, labored breathing, is not present, Breath sounds: are clear throughout, no decreased breath sounds, no stridor, no wheezing. 21:45 Abdomen/GI: Inspection: abdomen appears normal, Palpation: abdomen is soft and non-tender, in all quadrants. 21:45 Back: pain, is absent. 21:45 Skin: cellulitis, is not appreciated, no rash present. 21:45 Neuro: Mentation: responsive to voice sleepy, Motor: moves all fours. 23:55 Radiologist reports: no acute traumatic findings cp Vital Signs: 21:29 BP 112 / 83; Pulse 99; Resp 15; Temp 98.5(O); Pulse Ox 100% on R/A; Weight 77.11 kg; ao Height 5 ft. 3 in. (160.02 cm); Pain 5/10; 21:29 Body Mass Index 30.11 (77.11 kg, 160.02 cm) ao MDM: 21:39 Patient medically screened. cp 01/02 00:05 Data reviewed: vital signs, nurses notes, lab test result(s), EKG, radiologic studies, cp CT scan, I have discussed the patient's presentation/case with the attending Emergency Department Physician; and as a result, I will discharge patient. 00:05 Counseling: I had a detailed discussion with the patient and/or guardian regarding: the cp historical points, exam findings, and any diagnostic results supporting the discharge/admit diagnosis, to return to the emergency department if symptoms worsen or persist or if there are any questions or concerns that arise at home. ED course: VSS. Patient now alert times 3, denies suicidal ideations or attempt and is requesting to be discharged to home. No signs of respiratory distress and patient ambulating in ED w/o assistance. 01/01 21:24 Order name: Finger stick results - FOR PT WITH NO ID; Complete Time: 22:46 [facility] 01/01 21:27 Order name: Acetaminophen; Complete Time: 22:46 ok01/01 21:27 Order name: Basic Metabolic Panel; Complete Time: :46 [facility] 01/01 22:47 Interpretation: Normal except: NA 147; CL 112; CA 8.2. cp 01/01 21:27 Order name: CBC with Diff; Complete Time: 22:46 ok01/01 21:27 Order name: ETOH Level; Complete Time: :46 [facility] 01/01 21:27 Order name: Hepatic Function; Complete Time: :46 ok01/01 21:27 Order name: PT-INR; Complete Time: 22:46 01/01 21:27 Order name: Ptt, Activated; Complete Time: :46 01/01 21:27 Order name: Salicylate; Complete Time: 22:46 01/01 21:27 Order name: Urine Drug Screen; Complete Time: 23:20 ok01/01 22:49 Order name: CK; Complete Time: 23:20 cp 01/01 22:49 Order name: Troponin I; Complete Time: 23:20 cp 01/01 23:49 Order name: Urine Dipstick--Ancillary (enter results); Complete Time: 23:20 [facility] 01/01 23:49 Order name: Urine --Ancillary (enter results); Complete Time: 23:20 [facility] 01/01 21:27 Order name: EKG; Complete Time: 21:27 01/01 21:27 Order name: EKG - Nurse/Tech; Complete Time: 21:32 ak01/01 21:27 Order name: IV Saline Lock; Complete Time: 21:41 01/01 21:27 Order name: Labs collected and sent; Complete Time: 21:41 01/01 21:27 Order name: Urine Dipstick-Ancillary (obtain specimen); Complete Time: 23:34 [facility] 01/01 22:47 Order name: Urine Test (obtain specimen); Complete Time: 23:33 cp 01/01 22:49 Order name: CT Head C Spine cp EC/26 21:30 Rate is 114 beats/min. Rhythm is regular. MI interval is normal. QRS interval is cp normal. QT interval is normal. Interpreted by me. Reviewed by me. Administered Medications: 21:52 Drug: NS 0.9% 1000 ml Route: IV; Rate: 1 bolus; Site: right antecubital; ao 23:03 Follow up: IV Status: Completed infusion; IV Intake: 1000ml ak1 Point of Care Testing: Blood Glucose: 21:29 Blood Glucose: 100 mg/dL; ao Ranges: Critical Glucose Levels:Adult <50 mg/dl or >400 mg/dl <40 mg/dl or >180 mg/dl Disposition: 01/02 00:30 Chart complete. cp Disposition: 01/02/19 00:07 Discharged to Home. Impression: Drug abuse counseling and surveillance of drug abuser. - Condition is Stable. - Discharge Instructions: What You Need to Know About Prescription Opioid Pain Medicine. - Medication Reconciliation Form, Thank You Letter, Antibiotic Education, Prescription Opioid Use form. - Follow up: Private Physician; When: 1 - 2 days; Reason: Recheck today's complaints. - Problem is new. - Symptoms have improved. Addendum: 01/05/2019 11:06 Co-signature as Attending Physician, Parveen Stanley MD I agree with the assessment and c barrera plan of care. Signatures: Dispatcher [employer] EDParveen Singh MD MD cha Krenek, Amber, RN RN ak1 Parveen Kirk PA PA cp Ortiz, Alex, RN RN ao Corrections: (The following items were deleted from the chart) 01/01 22:47 22:47 Normal except: NA 147; CL 112. cp cp 23:36 22:47 Ambrosio ordered. cp ak1 01/02 00:08 00:07 01/02/2019 00:07 Discharged to Home. Impression: Drug abuse counseling and ao surveillance of drug abuser. Condition is Stable. Forms are Medication Reconciliation Form, Thank You Letter, Antibiotic Education, Prescription Opioid Use. Follow up: Private Physician; When: 1 - 2 days; Reason: Recheck today's complaints. Problem is new. Symptoms have improved. cp
[2019-01-02 01:20] LABS: Urine Blood 3+ (NEG); Urine Glucose NEGATIVE (NEG); Urine Protein 1+ (NEG); Urine Specific Gravity >1.030 (1.005-1.030)
--- NOTE | 2019-01-02 10:28 | EKG ---
Test Date: 2019-01-01 Test Time: 21:20:18 [employer]: KAPIL MEASUREMENT RESULTS: Intervals: Rate: 114 PA: 144 QRSD: 84 QT: 354 QTc: 487 [place]: P: 32 PA: 144 QRS: 64 T: 25 INTERPRETIVE STATEMENTS: Sinus tachycardia Otherwise normal ECG Compared to ECG 05/12/2018 17:27:47 Sinus rhythm no longer present Electronically Signed On 01-02-19 10:28:06 CDT by Juan Antonio Abdalla
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
== END 2019-01-02 00:08 | disposition home or self-care (01) ==
LOC: ER 21:20
DX: F19.10 Other psychoactive substance abuse, uncomplicated (principal); Z71.51 Drug abuse counseling and surveillance of drug abuser; F20.9 Schizophrenia, unspecified; I10 Essential (primary) hypertension; F31.9 Bipolar disorder, unspecified
CPT/HCPCS: 36415; 70450; 72125; 80048; 80076; 80307; 80320; 80329; 81003; 81025; 82550; 82962; 84484; 85025; 85610; 85730; 93005; 96360; 99285; J7030

== ENCOUNTER 2020-11-22 15:06 | Emergency (ER) | payer MEDICAID ==
[2020-11-22] MEDS ORDERED: ACETAMINOPHEN 325 MG TABLET ONE ×2 (16:13→16:16)
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
[2020-11-22 17:17] VITALS: TEMP 98; O2SAT 100
[2020-11-22 17:18] VITALS: BP 112/73
== END 2020-11-22 16:45 | disposition home or self-care (01) ==
LOC: ER 15:06
DX: S01.01XA Laceration without foreign body of scalp, initial encounter (principal); S71.151A Open bite, right thigh, initial encounter; Y04.1XXA Assault by human bite, initial encounter; Y00.XXXA Assault by blunt object, initial encounter; F31.9 Bipolar disorder, unspecified; G89.29 Other chronic pain; I10 Essential (primary) hypertension; F20.9 Schizophrenia, unspecified; F17.210 Nicotine dependence, cigarettes, uncomplicated
CPT/HCPCS: 70450; 72125; 99284

== ENCOUNTER 2020-12-03 22:19 | Emergency (ER) | payer MEDICAID ==
[2020-12-03 23:35] LABS: Absolute Lymphocytes (CBC) 1.8 K/uL (0.7-4.9); Basophils % 0.2 % (0-1.3); Hematocrit 38.2 % (36.0-45.0); Lymphocytes % 10.6 % (15.3-44.8); MPV 8.5 fL (7.6-11.3); RBC Red Blood Cell Count 4.26 M/uL (3.86-4.86)
[2020-12-03 23:39] LABS: Protime INR 0.96
[2020-12-03] MEDS ORDERED: FAMOTIDINE 20 MG/2 ML VIAL IV ONE (23:45)
[2020-12-03] MEDS ORDERED: ONDANSETRON 4 MG/2 ML VIAL ONE (23:45)
[2020-12-03] MEDS ORDERED: NA CHLORIDE 0.9% 1,000 ML ONE (23:45)
[2020-12-03 23:56] LABS: ALT/SGPT 23 U/L (12-78); AST/SGOT 8 U/L (15-37); Albumin 3.7 g/dL (3.4-5.0); Alkaline Phosphatase 85 U/L (45-117); BUN Blood Urea Nitrogen 12 mg/dL (7-18); Bicarbonate 32 mmol/L (21-32); Bilirubin Direct < 0.1 mg/dL (0-0.2); Bilirubin Total 0.2 mg/dL (0.2-1.0); Glucose Level 105 mg/dL (74-106); Lipase 50 U/L (73-393); Potassium 3.5 mmol/L (3.5-5.1); Protein, Total 7.6 g/dL (6.4-8.2); Sodium Level 141 mmol/L (136-145)
[2020-12-04 01:43] LABS: Urine Blood 1+ (Negative); Urine Glucose NEGATIVE (Negative); Urine Protein NEGATIVE (NEG); Urine Specific Gravity >1.030 (1.005-1.030); Urine Specific Gravity/Preg >1.030 (1.005-1.030)
[2020-12-04 02:04] LABS: Barbiturates NEGATIVE (NEGATIVE); Benzodiazepines NEGATIVE (NEGATIVE); Cocaine POSITIVE (NEGATIVE); METHAMPHETAM POSITIVE (NEGATIVE); Methadone NEGATIVE (NEGATIVE); Opiates NEGATIVE (NEGATIVE); Phencyclidine NEGATIVE (NEGATIVE); THC Cannibis NEGATIVE (NEGATIVE)
[2020-12-04 03:03] LABS: Creatine Phosphokinase 202 U/L (26-192)
[2020-12-04] MEDS ORDERED: CEFTRIAXONE/SWI 1gm 1 GM/10 ML SYR ONE (03:16)
--- NOTE | 2020-12-04 03:39 | EDPHYS ---
Physician Documentation [facility] Name: Lucy Saldana Age: 40 yrs Sex: Female : 1980 Arrival Date: 12/03/2020 Time: 22:29 Bed 2 Private MD: ED Physician Juan Kim HPI: 12/03 23:57 This 40 yrs old Female presents to ER via EMS with complaints of mh7 Nausea/Vomiting. 23:57 The patient presents to the emergency department with nausea, that is moderate, mh7 vomiting, that is intermittent. Onset: The symptoms/episode began/occurred 1 week(s) ago. Possible causes: bad food exposure, possibly bad home food. The symptoms are aggravated by nothing. The symptoms are alleviated by nothing. 23:57 Associated signs and symptoms: Pertinent negatives: abdominal pain, anorexia, belching, mh7 constipation, diarrhea, dysuria, fever, flatulence, GI bleeding, hematuria, vaginal discharge. Severity of symptoms: At their worst the symptoms were moderate 3 day(s) ago, in the emergency department the symptoms are unchanged. Historical: - Allergies: 22:33 No Known Allergies; lp1 - Home Meds: 22:33 Celexa Oral [Active]; lp1 - PMHx: 22:33 Bipolar disorder; Chronic pain; Hypertension; Schizophrenia; lp1 - PSHx: 22:33 None; lp1 - Immunization history:: Adult Immunizations unknown. - Social history:: Smoking status: Patient reports the use of cigarette tobacco products, smokes one pack cigarettes per day. Patient/guardian denies using alcohol, street drugs. ROS: 23:57 Constitutional: Negative for fever, chills, and weight loss, Eyes: Negative for injury, mh7 pain, redness, and discharge, ENT: Negative for injury, pain, and discharge, Neck: Negative for injury, pain, and swelling, Cardiovascular: Negative for chest pain, palpitations, and edema, Respiratory: Negative for shortness of breath, cough, wheezing, and pleuritic chest pain, Back: Negative for injury and pain, : Negative for injury, bleeding, discharge, and swelling, MS/Extremity: Negative for injury and deformity, Skin: Negative for injury, rash, and discoloration, Neuro: Negative for headache, weakness, numbness, tingling, and seizure, Psych: Negative for depression, anxiety, suicide ideation, homicidal ideation, and hallucinations, Allergy/Immunology: Negative for hives, rash, and allergies, Endocrine: Negative for neck swelling, polydipsia, polyuria, polyphagia, and marked weight changes, Hematologic/Lymphatic: Negative for swollen nodes, abnormal bleeding, and unusual bruising. Exam: 23:57 Head/Face: Normocephalic, atraumatic. Eyes: Pupils equal round and reactive to light, mh7 extra-ocular motions intact. Lids and lashes normal. Conjunctiva and sclera are non-icteric and not injected. Cornea within normal limits. Periorbital areas with no swelling, redness, or edema. Neck: Trachea midline, no thyromegaly or masses palpated, and no cervical lymphadenopathy. Supple, full range of motion without nuchal rigidity, or vertebral point tenderness. No Meningismus. Chest/axilla: Normal chest wall appearance and motion. Nontender with no deformity. No lesions are appreciated. Cardiovascular: Regular rate and rhythm with a normal S1 and S2. No gallops, murmurs, or rubs. Normal PMI, no JVD. No pulse deficits. Respiratory: Lungs have equal breath sounds bilaterally, clear to auscultation and percussion. No rales, rhonchi or wheezes noted. No increased work of breathing, no retractions or nasal flaring. Abdomen/GI: Soft, non-tender, with normal bowel sounds. No distension or tympany. No guarding or rebound. No evidence of tenderness throughout. Back: No spinal tenderness. No costovertebral tenderness. Full range of motion. Skin: Warm, dry with normal turgor. Normal color with no rashes, no lesions, and no evidence of cellulitis. MS/ Extremity: Pulses equal, no cyanosis. Neurovascular intact. Full, normal range of motion. Neuro: Awake and alert, GCS 15, oriented to person, place, time, and situation. Cranial nerves II-XII grossly intact. Motor strength 5/5 in all extremities. Sensory grossly intact. Cerebellar exam normal. Normal gait. Psych: Awake, alert, with orientation to person, place and time. Behavior, mood, and affect are within normal limits. 23:57 Constitutional: The patient appears in no acute distress, alert, awake, disheveled Vital Signs: 22:30 BP 158 / 114; Pulse 91; Resp 19; Temp 98.2(O); Pulse Ox 100% on R/A; Weight 54.43 kg; lp1 23:00 BP 127 / 83; Pulse 77; Resp 15; Pulse Ox 98% on R/A; lp1 12/04 00:00 BP 122 / 79; Pulse 74; Resp 17; Pulse Ox 98% on R/A; lp1 01:00 BP 114 / 68; Pulse 92; Resp 15; Pulse Ox 98% on R/A; lp1 02:00 BP 122 / 81; Pulse 68; Resp 16; Pulse Ox 100% on R/A; lp1 03:45 BP 108 / 69; Pulse 69; Resp 16; Pulse Ox 97% on R/A; lp1 MDM: 03:34 Differential diagnosis: gastritis, pancreatitis, diverticulitis, viral gastroenteritis, mh7 gastroenteritis, UTI. Data reviewed: vital signs, nurses notes, old medical records, lab test result(s), CBC, drug level(s), acetaminophen, salicylate, electrolytes, urinalysis, urine drug screen, UPT: negative EKG, radiologic studies, CT scan. Data interpreted: Pulse oximetry: on room air is 98 %. Interpretation: normal. Counseling: I had a detailed discussion with the patient and/or guardian regarding: the historical points, exam findings, and any diagnostic results supporting the discharge/admit diagnosis, lab results, radiology results, the need for outpatient follow up, to return to the emergency department if symptoms worsen or persist or if there are any questions or concerns that arise at home. Response to treatment: the patient's symptoms have resolved after treatment, the patient's blood pressure is in an acceptable range, mental status has returned to baseline, the patient no longer shows bradycardia, the patient is not short of breath, the patient is not tachycardic, the patient's pain is gone, the patient's temperature has normalized. 03:[address] [facility] [place] 12/03 23:19 Order name: Acetaminophen [facility] [place] 12/03 23:19 Order name: Basic Metabolic Panel [facility] [place] 12/03 23:19 Order name: CBC with Diff [facility] [place] 12/03 23:19 Order name: ETOH Level [facility] [place] 12/03 23:19 Order name: Hepatic Function; Complete Time: 03:16 [facility] [place] 12/03 23:19 Order name: PT-INR; Complete Time: 00:21 [facility] [place] 12/03 23:19 Order name: Ptt, Activated; Complete Time: 00:21 [facility] [place] 12/03 23:19 Order name: Salicylate; Complete Time: 00:21 [facility] [place] 12/03 23:19 Order name: Urine Drug Screen; Complete Time: 02:21 [facility] [place] 12/03 23:19 Order name: Lipase; Complete Time: 03:16 [facility] [place] 12/03 23:23 Order name: Acetaminophen Level; Complete Time: 03:16 [facility] 12/03 23:23 Order name: Basic Metabolic Panel; Complete Time: 03:16 [facility] 12/03 23:23 Order name: CBC with Automated Diff; Complete Time: 00:21 [facility] 12/03 23:23 Order name: Alcohol Serum/Plasma; Complete Time: 00:21 [facility] 12/03 23:19 Order name: EKG; Complete Time: 23:24 [facility] [place] 12/03 23:19 Order name: EKG - Nurse/Tech; Complete Time: 23:59 [facility] [place] 12/03 23:19 Order name: IV Saline Lock; Complete Time: 23:22 [facility] [place] 12/04 00:25 Order name: CT Abd/Pelvis - IV Contrast Only [facility] [place] 12/04 00:25 Order name: CT Head Brain wo Cont [facility] [place] 12/04 01:03 Order name: Urine Dipstick--Ancillary (enter results) [facility] 12/04 01:03 Order name: Urine --Ancillary (enter results) [facility] 12/04 01:04 Order name: Urine Dipstick-Ancillary; Complete Time: 02:21 [facility] 12/04 01:04 Order name: Urine --Ancillary; Complete Time: 02:21 [facility] 12/04 02:22 Order name: Urine Culture [facility] [place] 12/04 02:33 Order name: Creatine Phosphokinase; Complete Time: 03:16 [facility] 12/03 23:19 Order name: Labs collected and sent; Complete Time: 23:22 [facility] [place] 12/03 23:19 Order name: Urine Dipstick-Ancillary (obtain specimen); Complete Time: 01:01 [facility] [place] 12/03 23:19 Order name: Urine Test (obtain specimen); Complete Time: 01:01 [facility] [place] Administered Medications: 12/03 23:33 Drug: NS 0.9% 1000 ml Route: IV; Rate: 1000 ml; Site: right forearm; lp1 12/04 01:00 Follow up: IV Status: Completed infusion; IV Intake: 1000ml lp1 12/03 23:33 Drug: Zofran (Ondansetron) 4 mg Route: IVP; Site: right forearm; lp1 12/04 00:00 Follow up: Response: Marked relief of symptoms lp1 12/03 23:34 Drug: Pepcid (famotidine) 20 mg Route: IVP; Site: right forearm; lp1 12/04 01:02 Follow up: Response: Marked relief of symptoms lp1 02:59 Drug: Rocephin - (cefTRIAXone) 1 grams Route: IVPB; Infused Over: 30 mins; Site: right lp1 forearm; 03:54 Follow up: IV Status: Completed infusion; IV Intake: 10ml lp1 Disposition: 12/04/20 03:39 Discharged to Home. Impression: Vomiting, unspecified, Urinary tract infection, site not specified, Cocaine abuse, Methamphetamine Abuse. - Condition is Stable. - Discharge Instructions: Stimulant Use Disorder-Cocaine, Nausea and Vomiting, Adult, Urinary Tract Infection, Adult, [id number], Stimulant Use Disorder-Methamphetamines. - Prescriptions for Zofran ODT 4 mg Oral tablet,disintegrating - place 1 tablet by TRANSLINGUAL route every 8 hours As needed; 6 tablet. Keflex 500 mg Oral Capsule - take 1 capsule by ORAL route every 12 hours for 10 days; 20 capsule. - Medication Reconciliation Form, Thank You Letter, Antibiotic Education, Prescription Opioid Use form. - Follow up: Private Physician; When: 1 - 2 days; Reason: Worsening of condition, Recheck today's complaints, Continuance of care, Re-evaluation by your physician. - Problem is new. - Symptoms have improved. Signatures: Dispatcher [employer] [facility] Catie Hagan RN RN lp1 Juan Kim MD MD mh7 Corrections: (The following items were deleted from the chart) 02:33 02:23 CREATINE PHOSPHOKINASE+C.LAB.BRZ ordered. [facility] 04:01 03:39 12/04/2020 03:39 Discharged to Home. Impression: Vomiting, unspecified; Urinary lp1 tract infection, site not specified; Cocaine abuse; Methamphetamine Abuse. Condition is Stable. Forms are Medication Reconciliation Form, Thank You Letter, Antibiotic Education, Prescription Opioid Use. Follow up: Private Physician; When: 1 - 2 days; Reason: Worsening of condition, Recheck today's complaints, Continuance of care, Re-evaluation by your physician. Problem is new. Symptoms have improved. mh7
--- NOTE | 2020-12-04 03:39 | ER ---
Nurse's Notes [facility] Name: Lucy Saldana Age: 40 yrs Sex: Female : 1980 Arrival Date: 12/03/2020 Time: 22:29 Bed 2 Private MD: Diagnosis: Vomiting, unspecified;Urinary tract infection, site not specified;Cocaine abuse;Methamphetamine Abuse Presentation: 12/03 22:30 Chief complaint: EMS states: Called for patient complaint of vomiting x 1 week;. lp1 Coronavirus screen: Client denies travel out of the [place] in the last 14 days. At this time, the client does not indicate any symptoms associated with coronavirus-19. Ebola Screen: No symptoms or risks identified at this time. Initial Sepsis Screen: Does the patient meet any 2 criteria? No. Patient's initial sepsis screen is negative. Does the patient have a suspected source of infection? No. Patient's initial sepsis screen is negative. Risk Assessment: Do you want to hurt yourself or someone else? Patient reports no desire to harm self or others. Onset of symptoms was December 03, 2020. 22:30 Method Of Arrival: EMS: [facility] lp1 22:30 Acuity: ERASMO 3 lp1 Historical: - Allergies: 22:33 No Known Allergies; lp1 - Home Meds: 22:33 Celexa Oral [Active]; lp1 - PMHx: 22:33 Bipolar disorder; Chronic pain; Hypertension; Schizophrenia; lp1 - PSHx: 22:33 None; lp1 - Immunization history:: Adult Immunizations unknown. - Social history:: Smoking status: Patient reports the use of cigarette tobacco products, smokes one pack cigarettes per day. Patient/guardian denies using alcohol, street drugs. Screenin:33 Abuse screen: Denies threats or abuse. Denies injuries from another. Nutritional lp1 screening: No deficits noted. Tuberculosis screening: No symptoms or risk factors identified. Fall Risk None identified. Assessment: 22:33 General: Appears unkempt, Behavior is anxious. Pain: Denies pain. Neuro: Level of lp1 Consciousness is awake, alert, obeys commands, Oriented to person, place, situation. Cardiovascular: Patient's skin is warm and dry. Respiratory: Respiratory effort is even, unlabored. GI: Abdomen is non-distended, Reports nausea, vomiting. : No signs and/or symptoms were reported regarding the genitourinary system. EENT: No signs and/or symptoms were reported regarding the EENT system. Derm: Skin is intact, Skin is dry, Skin is normal. Musculoskeletal: No deficits noted. 23:34 Reassessment: Patient reports nausea, states "I just need to throw up, give me lp1 something to make me throw up"; reports cramping to general abdomen. 12/04 01:00 Reassessment: Assisted patient to bathroom, steady gait; urine sample collected. lp1 02:00 Reassessment: Patient appears in no apparent distress at this time. Patient resting, lp1 eyes closed, respirations unlabored. 03:15 Reassessment: Patient appears in no apparent distress at this time. Patient resting, lp1 respirations even, unlabored, warm blanket given; denies nausea or pain at this time. Vital Signs: 12/03 22:30 BP 158 / 114; Pulse 91; Resp 19; Temp 98.2(O); Pulse Ox 100% on R/A; Weight 54.43 kg; lp1 23:00 BP 127 / 83; Pulse 77; Resp 15; Pulse Ox 98% on R/A; lp1 12/04 00:00 BP 122 / 79; Pulse 74; Resp 17; Pulse Ox 98% on R/A; lp1 01:00 BP 114 / 68; Pulse 92; Resp 15; Pulse Ox 98% on R/A; lp1 02:00 BP 122 / 81; Pulse 68; Resp 16; Pulse Ox 100% on R/A; lp1 03:45 BP 108 / 69; Pulse 69; Resp 16; Pulse Ox 97% on R/A; lp1 ED Course: 12/03 22:29 Patient arrived in ED. bb 22:32 Triage completed. lp1 22:32 Arm band placed on. lp1 22:34 Patient has correct armband on for positive identification. 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 Pulse lp1 ox on. NIBP on. 22:35 Catie Hagan, BERTA is Primary Nurse. lp1 22:49 Juan Kim MD is Attending Physician. [facility] 22:49 Inserted saline lock: 20 gauge in right forearm, using aseptic technique. lp1 12/04 01:17 CT Head Brain wo Cont In Process Unspecified. EDMS 01:24 CT Abd/Pelvis - IV Contrast Only In Process Unspecified. EDMS 03:53 No provider procedures requiring assistance completed. lp1 04:01 IV discontinued, No redness/swelling at site. Pressure dressing applied. lp1 Administered Medications: 12/03 23:33 Drug: NS 0.9% 1000 ml Route: IV; Rate: 1000 ml; Site: right forearm; lp1 12/04 01:00 Follow up: IV Status: Completed infusion; IV Intake: 1000ml lp1 12/03 23:33 Drug: Zofran (Ondansetron) 4 mg Route: IVP; Site: right forearm; lp1 12/04 00:00 Follow up: Response: Marked relief of symptoms lp1 12/03 23:34 Drug: Pepcid (famotidine) 20 mg Route: IVP; Site: right forearm; lp1 12/04 01:02 Follow up: Response: Marked relief of symptoms lp1 02:59 Drug: Rocephin - (cefTRIAXone) 1 grams Route: IVPB; Infused Over: 30 mins; Site: right lp1 forearm; 03:54 Follow up: IV Status: Completed infusion; IV Intake: 10ml lp1 Intake: 01:00 IV: 1000ml; Total: 1000ml. lp1 03:54 IV: 10ml; Total: 1010ml. lp1 Outcome: 03:39 Discharge ordered by . 7 04:01 Discharged to home ambulatory, with friend. lp1 04:01 Condition: good 04:01 Discharge instructions given to patient, Instructed on discharge instructions, follow up and referral plans. medication usage, Demonstrated understanding of instructions, follow-up care, medications, Prescriptions given X 2. 04:01 Patient left the ED. lp1 Signatures: Dispatcher [employer] EDMS Kriss Stewart RN RN Catie Dominguez RN RN 1 Juan Kim MD MD 7 Corrections: (The following items were deleted from the chart) 03:51 01:00 BP 114 / 68; Pulse 92bpm; Resp 15bpm; Pulse Ox 98% RA; lp1 lp1 03:51 02:00 BP 108 / 69; Pulse 69bpm; Resp 16bpm; Pulse Ox 97% RA; lp1 lp1
[2020-12-04 04:24] VITALS: TEMP 98.2
[2020-12-04 04:38] VITALS: BP 108/69; O2SAT 97
--- NOTE | 2020-12-04 11:37 | RAD REPORT ---
EXAM DESCRIPTION: CT - Abdomen Pelvis W Contrast - 12/04/2020 7:11 am CLINICAL HISTORY: The patient is 40 years old and is Female; NAUSEA / VOMITING TECHNIQUE: Axial computed tomography images of the abdomen and pelvis with intravenous contrast. S agittal and coronal reformatted images were created and reviewed. This CT exam was performed using one or more of the following dose reduction techniques: automated exposure control, adjustment of t he mA and/or kV according to patient size, and/or use of iterative reconstruction technique. COMPARISON: No relevant prior studies available. FINDINGS: Lung bases: Unremarkable. No mass. No consolidation. ABDOMEN: Liver: Tiny subcentimeter low-density lesion in the right posterior liver which is too small to fully characterize but likely represents a cyst. ACR White Paper guidelines (Esau, et al. JACR 2017 ; 14(11):8289-4543.) suggest the following. For patients with low risk of malignancy, no further fo llow-up is necessary. For patients with high risk of malignancy (known malignancy with a propensity to metastasize to the liver, cirrhosis, and/or other hepatic risk factors), recommend follow-up abdo todd CT or MR in 6 months. Gallbladder and bile ducts: Unremarkable. No calcified stones. No ductal dilation. Pancreas: Unremarkable. No mass. No ductal dilation. Spleen: Unremarkable. No splenomegaly. Adrenals: Unremarkable. No mass. Kidneys and ureters: Unremarkable. No solid mass. No hydronephrosis. Stomach and bowel: Unremarkable. No obstruction. No mucosal thickening. PELVIS: Appendix: No findings to suggest acute appendicitis. Bladder: Unremarkable. No mass. Reproductive: Unremarkable as visualized. ABDOMEN and PELVIS: Intraperitoneal space: Unremarkable. No free air. No significant fluid collection. Bones/joints: No acute fracture. No dislocation. Soft tissues: Unremarkable. Vasculature: Unremarkable. No abdominal aortic aneurysm. Lymph nodes: Unremarkable. No enlarged lymph nodes. IMPRESSION: No acute findings in the abdomen or pelvis. Electronically signed by: Costa Fernando MD 12/04/2020 1:53 AM CDT Due to temporary technical issues with the PACS/Fluency reporting system, reports are being signed by the in house radiologist without review as a courtesy to ensure prompt reporting. The interpreting r adiologist is fully responsible for the content of the report.
--- NOTE | 2020-12-04 11:39 | RAD REPORT ---
EXAM DESCRIPTION: CT - Head Brain Wo Cont - 12/04/2020 7:10 am CLINICAL HISTORY: The patient is 40 years old and is Female; DIZZINESS TECHNIQUE: Axial computed tomography images of the head/brain without intravenous contrast. Sagitt al and coronal reformatted images were created and reviewed. This CT exam was performed using one o r more of the following dose reduction techniques: automated exposure control, adjustment of the mA and/or kV according to patient size, and/or use of iterative reconstruction technique. COMPARISON: No relevant prior studies available. FINDINGS: Brain: Unremarkable. No hemorrhage. No significant white matter disease. No edema. Ventricles: Unremarkable. No ventriculomegaly. Bones/joints: Unremarkable. No acute fracture. Soft tissues: Unremarkable. Sinuses: Unremarkable as visualized. Mastoid air cells: Unremarkable as visualized. No mastoid effusion. IMPRESSION: No acute findings in the head/brain. Electronically signed by: Costa Fernando MD 12/04/2020 1:46 AM CDT Due to temporary technical issues with the PACS/Fluency reporting system, reports are being signed by the in house radiologist without review as a courtesy to ensure prompt reporting. The interpreting r adiologist is fully responsible for the content of the report.
== END 2020-12-04 04:01 | disposition home or self-care (01) ==
LOC: ER 22:19
DX: N39.0 Urinary tract infection, site not specified (principal); F14.10 Cocaine abuse, uncomplicated; F15.10 Other stimulant abuse, uncomplicated; I10 Essential (primary) hypertension; F20.9 Schizophrenia, unspecified; F17.210 Nicotine dependence, cigarettes, uncomplicated
CPT/HCPCS: 93005; 87088; 85025; 87086; 80048; 36415; 80320; 82550; 80329 ×2; 81025; 85610; 80076; 80307 ×8; 85730; 81003; 83690; 70450; 74177; Q9967; J0696; J7030; J2405; 96361; 96365; 96375; 99284